=== PATIENT | female | born 1985 | race Asian ===

== ENCOUNTER → 2024-04-30 11:36 | Outpatient (CLI) | payer OTHER, SELFPAY ==
--- NOTE | 2024-04-30 11:39 | DI.RAD.S_ITS ---
PROCEDURE: XR WRIST RT MIN 3V INDICATIONS: Wrist strain TECHNIQUE: 4 views of the wrist were acquired. COMPARISON: None. FINDINGS: Bones: No fractures or dislocations. No suspicious bony lesions. Soft tissues: No suspicious soft tissue calcifications. IMPRESSION: No acute bony abnormality. Dictated by: Marcel Rogers M.D. on 04/30/2024 at 17:06 Approved by: Marcel Rogers M.D. on 04/30/2024 at 17:07
== END ==
PROVIDERS: Referring Provider Nurse Practitioner Family; Visit Provider Nurse Practitioner Family
DX: S66.911A Strain of unspecified muscle, fascia and tendon at wrist and hand level, right hand, initial encounter (principal); X58.XXXA Exposure to other specified factors, initial encounter
CPT/HCPCS: 73110

== ENCOUNTER → 2024-07-20 11:48 | Outpatient (CLI) | payer OTHER, SELFPAY ==
--- NOTE | 2024-07-20 11:49 | DI.US.S_ITS ---
PROCEDURE: US THYROID INDICATIONS: NONTOXIC SINGLE THYROID NODULE TECHNIQUE: Real-time scanning was performed of the thyroid gland, with image documentation. COMPARISON: None. FINDINGS: Thyroid: Right lobe measures 4.2 x 1.3 x 1.3 cm. Left lobe measures 4.7 x 2.1 x 1.6 cm. Isthmus is 0.3 cm thick. Echotexture is heterogeneous on the left. Nodule number: 1 Location: Left inferior Size: 2.9 cm. Composition: Solid Echogenicity: Predominantly hypoechoic Shape: wider than tall. Margins: Smooth Echogenic foci: None Total points: 4 ACR TI-RADS category: Moderately suspicious IMPRESSION: Moderately suspicious 2.9 cm left thyroid nodule. Recommend FNA. ACR TI-RADS definitions and recommendations: TI-RADS 1 (benign): 0 points. FNA not needed. TI-RADS 2 (not suspicious): 2 points. FNA not needed. TI-RADS 3 (mildly suspicious): 3 points. * FNA if 2.5 cm or larger, follow up if 1.5 cm or larger (at 1, 3, and 5 years). TI-RADS 4 (moderately suspicious): 4-6 points. * FNA if 1.5 cm or larger, follow up if 1 cm or larger (at 1, 2, 3, and 5 years). TI-RADS 5 (highly suspicious): 7 points or more. * FNA if 1 cm or larger, follow up if 0.5 cm or larger (every year for 5 years). Dictated by: Marquez SHELBY Interpreted: Tamara Pugh MD on 07/21/2024 at 18:45 Transcribed by: STELLA on 07/21/2024 at 18:46 Approved by: Tamara Pugh M.D. on 07/22/2024 at 16:46
== END ==
PROVIDERS: Family Provider Nurse Practitioner Family; PCP Nurse Practitioner Family; Referring Provider Family Medicine; Visit Provider Family Medicine
DX: E04.1 Nontoxic single thyroid nodule (principal)
CPT/HCPCS: 76536

== ENCOUNTER 2024-09-02 10:45 | Outpatient (RCR) | payer OTHER, SELFPAY ==
--- NOTE | 2024-06-17 12:29 | OT.OPPOC ---
Physical, Occupational & Speech Therapy At [facility] Celine Valiente [id number] 1985 Visit Care Team Role Provider Type DEL Rogers Attending Provider Non-Staff Family Provider Primary Care Provider Referring Provider Address: [address] [place] [address], [id number] Occupational Therapy Plan of Care OT Outpatient Adult Evaluation Start: 06/17/24 09:33 Freq: Status: Active Protocol: Document 06/17/24 09:34 RED (Rec: 06/17/24 11:12 RED [id number]) General Information - Adult Visit Information Visit Number 12/13 Plan of Care Dates 06/17/24 - 08/26/24 Insurance Information [employer], 12 visits Session Time Visit Start Date 06/17/24 Visit Start Time 09:35 Visit Stop Time 10:25 Setting Treatment Setting Outpatient Care Visit Type Note Type Initial Evaluation Referral Referring Physician Juana Fajardo Reason for Referral B wrist pain Identification Identification Confirmed Yes Patient Questionnaires Quick Dash- Upper Extremity Quick Dash UE Score 61.4 Quick Dash UE Impairment 60 to 79% Impaired (Score 60- 79) Quick Dash- Work and Sports Modules Quick Dash W&S Score 100 Quick Dash Work and Sport Impairment 100% Impaired (Score 100) Goals Treatment Treatment kinesio tape applied to B radial thumb/wrists Short Term Goals Short Term Goals 1.Pt will be I with ice massage and gentle AROM initial HEP 2.Pt will increase B thumb AROM to WFL for all movements and planes of movement to promote return to BADLs. 3.Pt will report improved perceived function with a rating of 50 or better on the QuickDash 4.Pt will complete in hand manipulation task, B?ly, 8 of 10 trials without dropping an item. Prison Goals Candle Making Supervisor Goals 1.Pt will be I with strengthening HEP. 2.Pt will increase B pain free middle school technology teacher strength assessment by > 10# from eval measurement 3.Pt will report improved perceived function with a rating of 25 or better on the QuickDash 4.Pt will report/demonstrate, being able to put her hair up I?ly and without increased pain. 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 She first noticed pinching pain in April on her R side, she began wearing a wrist splint on her own off and on. Eventually, her work moved her out of the infant room. 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 Eventually her L thumb/wrist became involved as well. She reports quitting work on June 04. She was issued B thumb spica splints and has been wearing them daily during activities for approximately 3 weeks. She takes Ibuprofen 400mg as needed Pt reports pain at radial aspect of B wrists with L side feeling more ?pinchy?, she rates overall at 3/10. She says this has improved, and that previously she could not tolerate palpation at the radial aspect of her wrists. Pt denies any sensory involvement. Pt reports dropping items such as her phone, toys, and a glass cup. Phmx: Pt was diagnosed with pneumonia on May 29. She says she is still building up her endurance and activity tolerance. PLOF: Pt reports that prior to her injuries, she was I with all her BADL/IADL, working, taking care of her 3 dogs, and leisure activities (gardening ). Currently, she has to have assistance with cooking, deep cleaning the house, gardening , walking the dogs, putting her hair up, and min A for UB dressing when a back zipper is involved. She leaves her shampoo containers open as she is unable to open them. She complains of difficulty cleaning her back, even with her extended back brush. She has great difficulty with turning door knobs. Pt is R hand dominant. ROM: CMC extension: R 30A/45P, L 35A/50P; CMC abduction: R 35A/ 40P, L 35A/40P; MCP flexion: R 48A, L 68A; IP flexion: R 54A , L 30A MMT: B wrists 5/5 Environmental Remediation Engineer: avg L 21.7#, R 36.7# Pinch: lateral L 7#, R 9#; pincer L 3#, R 4#; 3 jaw L 4#, R 6# Pt is + for [place] test B ?ly and is tender on palpation of radial wrist B?ly. She has noted edema over R thenar eminence and all digits of R hand. Pt demonstrates guarding of B hands with R>L throughout evaluation. Pt?s presents with significant deficits in BADL/IADLs, work and leisure, recently having to quit her job due to continued pain in B thumb/ wrists. Pt presents with decreased ROM, muscle weakness , and edema impacting functional use of B hands. Skilled OT services are appropriate to address pt deficits and promote return to PLOF. Home Exercise Program issued, OT to continue to review Reviewed with Patient Home Exercise Program Patient Understanding Excellent Plan Length of treatment (weeks) 10 Plan of Care Start Date 06/17/24 Plan of Care End Date 08/26/24 Comment 1-2x/wk Treatment Duration 45 Minutes Therapeutic Contents Active Range of Motion,Client Education,Functional Activities,Home Exercise Program,Joint Protection, Manual Therapy,Education, Neuromuscular Re-Education, Self-Care,Splinting,Stretching /Flexibility Activities, Therapeutic Activities, Therapeutic Exercises Modalities As Needed Types of Modalities Contrast Bath,Cyrotherapy, Iontophoresis Patient Instruction Home Exercise Program,Plan of Care,Questions/Concerns Patient Recommendations Continue with Current Program Functional Wrist/Hand Scan Hand Side Sensory Assessment Sensory Profile2 Electronically Signed by: Zoe Owens OT 06/17/24 6100 If you are in agreement with this Plan of Care, please return a signed and dated copy. I have reviewed this Plan of Care and certify that the skilled therapy services above are required to meet the patient?s needs. Physician Signature Date Printed Name and Credentials Clinical Instructor Signature Printed Name and Credentials
--- NOTE | 2024-06-24 10:51 | OT.OP.TRT ---
Visit Care Team Role Provider Type DEL Rogers Attending Provider Non-Staff Family Provider Primary Care Provider Referring Provider Specialty: Nursing Address: [address] [place] [address], [id number] Email: Occupational Therapy Treatment Note OT Outpatient Treatment Note - Adult Start: 06/17/24 09:33 Freq: Status: Active Protocol: Document 06/24/24 09:11 [email or web address] (Rec: 06/24/24 09:20 CHRISLOISMARCIE [id number]) OT Outpatient Adult Treatment Note Session Time Visit Start Date 06/24/24 Visit Start Time 09:42 Visit Stop Time 10:27 Visit Information Visit Number 01/13 Plan of Care Dates 06/17/24 - 08/26/24 Insurance Information [facility], 12 visits Setting Treatment Setting Outpatient Care Visit Type Note Type Treatment Note - Subjective Identification Type Name Identification Reconciled With Medical Record Observations My pain is mostly with movement, so I keep my braces on during the day. Pt reports increased pain on waking. OT suggests also wearing splints day. I feel like my hands are opening better Pt reports pain at start of tx at 3/10 and at worst at 6/10. She reports feeling relief from kinesio tape. - Objective Short Term Goals 1.Pt will be I with ice massage and gentle AROM initial HEP. MET 06/24 2.Pt will increase B thumb AROM to WFL for all movements and planes of movement to promote return to BADLs. 3.Pt will report improved perceived function with a rating of 50 or better on the QuickDash 4.Pt will complete in hand manipulation task, B?ly, 8 of 10 trials without dropping an item. Process Plant Operator Goals 1.Pt will be I with strengthening HEP. 2.Pt will increase B pain free regulatory attorney strength assessment by > 10# from eval measurement 3.Pt will report improved perceived function with a rating of 25 or better on the QuickDash 4.Pt will report/demonstrate, being able to put her hair up I?ly and without increased pain. - Treatment 2 Descriptor kinesio tape applied to B thumbs. I strip placed at thumb IP and extended toward lateral aspect of elbow. Second strip placed perpendicular to the first at most painful spot with 75% stretch. 1 Descriptor PROM B thumb CMC extension, abduction, MCP flexion, IP flexion within pain tolerance Exercises 2 Descriptor AROM B thumb retroposition x20 1 Descriptor AAROM B thumb extension (on lap) x40 AAROM B ulnar deviation (on lap) x20 Manual Therapy Manual Therapy Pt tolerated STM to B forearms focusing on APL and EPB. - Assessment Patient Response to Treatment Excellent Rehabilitation Potential Excellent Impairments Identified ADLs,Body Mechanics, Coordination/Dexterity, Flexibility,Functional Activities,Pain,Weakness, Posture,Range of Motion, Meaningful Activities, Stiffness,Swelling,Soft Tissue Mobility Progress Towards Goals Good Progress Assessment of Overall Progress Improving Assessment of Improvement Pt has met STG #1. Pt continues to demonstrate guarding especially on the R side. Pt was unable to tolerate active thumb extension or isometrics for the same movement. Pt was able to perform to WF active assistive on lap. OT recommends that pt wears her splints at night as she is having increased pain when she wakes. Pt?s palm was more open today, especially on the R. Pt makes progress with established POC. Cont per POC. Home Exercise Program Pt demonstrated I with her established HEP. OT will grade exercises up when appropriate . Reviewed with Patient/Caregiver Goals,Home Exercise Program - Plan Therapy Recommendations Continue with Current Program Amount of Therapy Recommended 2-3 Months Comment 1-2x/wk Length of Session 45 Minutes Therapeutic Contents Active Range of Motion,Client Education,Functional Activities,Home Exercise Program,Joint Protection, Manual Therapy,Education, Neuromuscular Re-Education, Self-Care,Splinting,Stretching /Flexibility Activities, Therapeutic Activities, Therapeutic Exercises, Modalities Modalities As Needed Types of Modalities Contrast Bath,Cyrotherapy, Iontophoresis
--- NOTE | 2024-07-01 08:59 | OT.OP.TRT ---
Visit Care Team Role Provider Type DEL Rogers Attending Provider Non-Staff Family Provider Primary Care Provider Referring Provider Specialty: Nursing Address: [address] [place] [address], [phone] Email: Occupational Therapy Treatment Note OT Outpatient Treatment Note - Adult Start: 06/17/24 09:33 Freq: Status: Active Protocol: Document 07/01/24 08:15 CHRISLOISMARCIE (Rec: 07/01/24 07:38 CHRISLOISMARCIE [id number]) OT Outpatient Adult Treatment Note Session Time Visit Start Date 07/01/24 Visit Start Time 08:15 Visit Stop Time 08:56 Visit Information Visit Number 02/10 Plan of Care Dates 06/17/24 - 08/26/24 Insurance Information [facility], 12 visits Setting Treatment Setting Outpatient Care Visit Type Note Type Treatment Note - Subjective Identification Type Name Identification Reconciled With Medical Record Observations Pt reports she is not having any pain at rest just with movement. I vacuumed yesterday for the first time she reports vacuuming the whole house but had no pain with it. I am able to move it further too - Objective Short Term Goals 1.Pt will be I with ice massage and gentle AROM initial HEP. MET 06/24 2.Pt will increase B thumb AROM to WFL for all movements and planes of movement to promote return to BADLs. 3.Pt will report improved perceived function with a rating of 50 or better on the QuickDash 4.Pt will complete in hand manipulation task, B?ly, 8 of 10 trials without dropping an item. Prison Goals 1.Pt will be I with strengthening HEP. 2.Pt will increase B pain free material requirements worker strength assessment by > 10# from eval measurement 3.Pt will report improved perceived function with a rating of 25 or better on the QuickDash 4.Pt will report/demonstrate, being able to put her hair up I?ly and without increased pain. - Treatment 2 Descriptor kinesio tape applied to B thumbs. I strip placed at thumb IP and extended toward lateral aspect of elbow. Second strip placed perpendicular to the first at most painful spot with 75% stretch. 1 Descriptor PROM B thumb CMC extension, abduction, MCP flexion, IP flexion within pain tolerance Exercises 3 Descriptor isometric: R thumb CMC extension x10 (L side painful, will add when not painful) B thumb CMC abduction x10 B thumb CMC flexion x10 B ulnar deviation x10 B radial deviation x10 2 Descriptor AROM B thumb retroposition x20 1 Descriptor AAROM B thumb extension (on lap) x20 AAROM B ulnar deviation (on lap) x20 Manual Therapy Manual Therapy Pt tolerated STM to B forearms focusing on APL and EPB active release technique. PROM B thumbs CMC, MCP, and IP as tolerated all planes of movement - Assessment Patient Response to Treatment Excellent Rehabilitation Potential Excellent Impairments Identified ADLs,Body Mechanics, Coordination/Dexterity, Flexibility,Functional Activities,Pain,Weakness, Posture,Range of Motion, Meaningful Activities, Stiffness,Swelling,Soft Tissue Mobility Progress Towards Goals Good Progress Assessment of Overall Progress Improving Assessment of Improvement Pt reports improved functional pain free use of R dominant hand and demonstrates decreased guarding with B hands during today treatment. Pt able to tolerate addition of isometrics today, unable to tolerate L CMC extension, but otherwise tolerated gentle isometrics. Pt making progress toward STG #2. Pt continues to be appropriate for skilled OT services and makes progress with established POC. Cont per POC. Reviewed with Patient/Caregiver Goals,Home Exercise Program - Plan Therapy Recommendations Continue with Current Program Amount of Therapy Recommended 2-3 Months Comment 1-2x/wk Length of Session 45 Minutes Therapeutic Contents Active Range of Motion,Client Education,Functional Activities,Home Exercise Program,Joint Protection, Manual Therapy,Education, Neuromuscular Re-Education, Self-Care,Splinting,Stretching /Flexibility Activities, Therapeutic Activities, Therapeutic Exercises, Modalities Modalities As Needed Types of Modalities Contrast Bath,Cyrotherapy, Iontophoresis
--- NOTE | 2024-07-08 12:09 | OT.OP.TRT ---
Visit Care Team Role Provider Type DEL Rogers Attending Provider Non-Staff Family Provider Primary Care Provider Referring Provider Specialty: Nursing Address: [address] [place] [address], [id number] Email: Occupational Therapy Treatment Note OT Outpatient Treatment Note - Adult Start: 06/17/24 09:33 Freq: Status: Active Protocol: Document 07/08/24 08:34 RED (Rec: 07/08/24 08:38 RED [id number]) OT Outpatient Adult Treatment Note Session Time Visit Start Date 07/08/24 Visit Start Time 09:45 Visit Stop Time 10:30 Visit Information Visit Number 03/13 Plan of Care Dates 06/17/24 - 08/26/24 Insurance Information [facility], 12 visits Setting Treatment Setting Outpatient Care Visit Type Note Type Treatment Note - Subjective Identification Type Name Identification Reconciled With Medical Record Observations I swatted a pain and it was the worse pain ever! It felt like a shock! Pt says she can tell shes getting a little more movement I can do a little thumbs up. Pt has no pain at rest. Pt reports pain at worse during tx at 5/10 B and 2/10 following tx. - Objective Short Term Goals 1.Pt will be I with ice massage and gentle AROM initial HEP. MET 06/24 2.Pt will increase B thumb AROM to WFL for all movements and planes of movement to promote return to BADLs. 3.Pt will report improved perceived function with a rating of 50 or better on the QuickDash 4.Pt will complete in hand manipulation task, B?ly, 8 of 10 trials without dropping an item. Senior Living Goals 1.Pt will be I with strengthening HEP. 2.Pt will increase B pain free ground products director strength assessment by > 10# from eval measurement 3.Pt will report improved perceived function with a rating of 25 or better on the QuickDash 4.Pt will report/demonstrate, being able to put her hair up I?ly and without increased pain. - Treatment 3 Descriptor STM: thenar eminence and web space B'ly. R>L with trigger points and 2 Descriptor kinesio tape applied to B thumbs. I strip placed at thumb IP and extended toward lateral aspect of elbow. Second strip placed perpendicular to the first at most painful spot with 75% stretch. 1 Descriptor PROM B thumb CMC extension, abduction, MCP flexion, IP flexion within pain tolerance Exercises 3 Descriptor isometric: R thumb CMC extension x10 (L side painful, will add when not painful) B thumb CMC abduction x10 B thumb CMC flexion x10 B ulnar deviation x10 B radial deviation x10 2 Descriptor AROM B thumb retroposition x20 1 Descriptor AAROM B thumb extension (on lap) x20 AAROM B ulnar deviation (on lap) x20 Manual Therapy Manual Therapy Pt tolerated STM to B forearms focusing on APL and EPB active release technique. PROM B thumbs CMC, MCP, and IP as tolerated all planes of movement - Assessment Patient Response to Treatment Excellent Rehabilitation Potential Excellent Impairments Identified ADLs,Body Mechanics, Coordination/Dexterity, Flexibility,Functional Activities,Pain,Weakness, Posture,Range of Motion, Meaningful Activities, Stiffness,Swelling,Soft Tissue Mobility Progress Towards Goals Good Progress Assessment of Overall Progress Improving Assessment of Improvement Pt continues to be very guarded with B hands with R>L. Pt tolerates STM well and stretching to B thumbs. Pt had pain when initiating AAROM L thumb extension and R ulnar deviation, OT passively initiated both movements for approximately 5 reps, pt was then able to take over movement with pain free ROM. Pt tolerated all isometrics today [place], previously unable to tolerate all on her L side. Pt continues to wear her splints with all activity. Pt continues to benefit from skilled OT services per established POC. Cont per POC. Reviewed with Patient/Caregiver Goals,Home Exercise Program - Plan Therapy Recommendations Continue with Current Program Amount of Therapy Recommended 2-3 Months Comment 1-2x/wk Length of Session 45 Minutes Therapeutic Contents Active Range of Motion,Client Education,Functional Activities,Home Exercise Program,Joint Protection, Manual Therapy,Education, Neuromuscular Re-Education, Self-Care,Splinting,Stretching /Flexibility Activities, Therapeutic Activities, Therapeutic Exercises, Modalities Modalities As Needed Types of Modalities Contrast Bath,Cyrotherapy, Iontophoresis
--- NOTE | 2024-07-13 12:18 | OT.OP.TRT ---
Visit Care Team Role Provider Type DEL Rogers Attending Provider Non-Staff Family Provider Primary Care Provider Referring Provider Specialty: Nursing Address: [address] [place] [address], [phone] Email: Occupational Therapy Treatment Note OT Outpatient Treatment Note - Adult Start: 06/17/24 09:33 Freq: Status: Active Protocol: Document 07/13/24 09:45 RED (Rec: 07/13/24 09:17 RED [id number]) OT Outpatient Adult Treatment Note Session Time Visit Start Date 07/13/24 Visit Start Time 09:45 Visit Stop Time 10:30 Visit Information Visit Number 04/12 Plan of Care Dates 06/17/24 - 08/26/24 Insurance Information [facility], 12 visits Setting Treatment Setting Outpatient Care Visit Type Note Type Treatment Note - Subjective Identification Type Name Identification Reconciled With Medical Record Observations I can tell my range of motion is getting better. Pt reports she was having pain off and on since last treatment. She reports she lost her dog last Saturday maybe my stress level is up to . She reports she is taking her splints off more since she has been feeling better. Pt went blueberry picking yesterday. Prior to picking she wasn't having any pain, so she removed her splints. She said she had same pain during but pain increased more following task. At start of tx pt reports pain at 2/10 with L>R and 3/10 at end with R>L - Objective Short Term Goals 1.Pt will be I with ice massage and gentle AROM initial HEP. MET 06/24 2.Pt will increase B thumb AROM to WFL for all movements and planes of movement to promote return to BADLs. 3.Pt will report improved perceived function with a rating of 50 or better on the QuickDash 4.Pt will complete in hand manipulation task, B?ly, 8 of 10 trials without dropping an item. Detention Goals 1.Pt will be I with strengthening HEP. 2.Pt will increase B pain free bun panner strength assessment by > 10# from eval measurement 3.Pt will report improved perceived function with a rating of 25 or better on the QuickDash 4.Pt will report/demonstrate, being able to put her hair up I?ly and without increased pain. - Treatment 3 Descriptor STM: thenar eminence and web space B'ly. R>L with trigger point and tightness 2 Descriptor kinesio tape applied to B thumbs. I strip placed at thumb IP and extended toward lateral aspect of elbow. Second strip placed perpendicular to the first at most painful spot with 75% stretch. 1 Descriptor PROM B thumb CMC extension, abduction, MCP flexion, IP flexion within pain tolerance Exercises [address] and hold thumb abduction x5 reps 3 Descriptor isometric: R thumb CMC extension x10 (pt able to tolerate on L today) B thumb CMC abduction x10 B thumb CMC flexion x10 B ulnar deviation x10 B radial deviation x10 2 Descriptor AROM B thumb retroposition x20 1 Descriptor AAROM B thumb extension (on lap) x20 AAROM B ulnar deviation (on lap) x20 Manual Therapy Manual Therapy PROM B thumbs CMC, MCP, and IP as tolerated all planes of movement; transverse massage B 'ly - Assessment Patient Response to Treatment Good Rehabilitation Potential Excellent Impairments Identified ADLs,Body Mechanics, Coordination/Dexterity, Flexibility,Functional Activities,Pain,Weakness, Posture,Range of Motion, Meaningful Activities, Stiffness,Swelling,Soft Tissue Mobility Progress Towards Goals Good Progress Assessment of Overall Progress Improving Assessment of Improvement Pt continues to be very guarded with B hands with R>L. Pt tolerates STM well and stretching to B thumbs. Today , pt demonstrated improved tolerance of AAROM as evidenced by being able to tolerate AAROM without OT initiating movement. Pt has limited active thumb abduction . Pt was able to tolerate place hold for submaximal ROM to initiate improved function and strength. OT encouraged pt to wear her splints more regularly with all activities as she is having increased pain with less wearing this past week. Pt may benefit from cortisone injections. Pt continues to benefit from skilled OT services per established POC. Cont per POC. Reviewed with Patient/Caregiver Goals,Home Exercise Program - Plan Therapy Recommendations Continue with Current Program Amount of Therapy Recommended 2-3 Months Comment 1-2x/wk Length of Session 45 Minutes Therapeutic Contents Active Range of Motion,Client Education,Functional Activities,Home Exercise Program,Joint Protection, Manual Therapy,Education, Neuromuscular Re-Education, Self-Care,Splinting,Stretching /Flexibility Activities, Therapeutic Activities, Therapeutic Exercises, Modalities Modalities As Needed Types of Modalities Contrast Bath,Cyrotherapy, Iontophoresis
--- NOTE | 2024-07-20 12:18 | OT.OP.TRT ---
Visit Care Team Role Provider Type DEL Rogers Attending Provider Non-Staff Family Provider Primary Care Provider Referring Provider Specialty: Nursing Address: [address] [place] [address], [id number] Email: Occupational Therapy Treatment Note OT Outpatient Treatment Note - Adult Start: 06/17/24 09:33 Freq: Status: Active Protocol: Document 07/20/24 09:47 RED (Rec: 07/20/24 09:17 RED [id number]) OT Outpatient Adult Treatment Note Session Time Visit Start Date 07/20/24 Visit Start Time 09:47 Visit Stop Time 10:30 Visit Information Visit Number 05/13 Plan of Care Dates 06/17/24 - 08/26/24 Insurance Information [facility], 12 visits Setting Treatment Setting Outpatient Care Visit Type Note Type Treatment Note - Subjective Identification Type Name Identification Reconciled With Medical Record Observations Pt starting taking a molecular hydrogen water bottle and started new vitamin (complete vitamins, phytoenergizer) . I feel so good today, I drove for the first time! I woke up without pain and can do a thumbs up! - Objective Short Term Goals 1.Pt will be I with ice massage and gentle AROM initial HEP. MET 06/24 2.Pt will increase B thumb AROM to WFL for all movements and planes of movement to promote return to BADLs. 3.Pt will report improved perceived function with a rating of 50 or better on the QuickDash 4.Pt will complete in hand manipulation task, B?ly, 8 of 10 trials without dropping an item. [employer] Goals 1.Pt will be I with strengthening HEP. 2.Pt will increase B pain free imaging account manager strength assessment by > 10# from eval measurement 3.Pt will report improved perceived function with a rating of 25 or better on the QuickDash 4.Pt will report/demonstrate, being able to put her hair up I?ly and without increased pain. - Treatment 3 Descriptor STM: thenar eminence and web space B'ly. R>L with trigger point and tightness 2 Descriptor kinesio tape applied to B thumbs. I strip placed at thumb IP and extended toward lateral aspect of elbow. Second strip placed perpendicular to the first at most painful spot with 75% stretch. 1 Descriptor PROM B thumb CMC extension, abduction, MCP flexion, IP flexion within pain tolerance Exercises 5 Descriptor rubberband: B thumb abduction 10x2 thumb extension 10x2 thumb flexion 10x2 [address] and hold thumb abduction x5 reps 3 Descriptor isometric: R thumb CMC extension x10 B thumb CMC abduction x10 B thumb CMC flexion x10 B ulnar deviation x10 B radial deviation x10 2 Descriptor AROM B thumb retroposition x20 1 Descriptor AAROM B thumb extension (on lap) x20 AAROM B ulnar deviation (on lap) x20 Manual Therapy Manual Therapy PROM B thumbs CMC, MCP, and IP as tolerated all planes of movement; transverse massage B 'ly - Assessment Patient Response to Treatment Good Rehabilitation Potential Excellent Impairments Identified ADLs,Body Mechanics, Coordination/Dexterity, Flexibility,Functional Activities,Pain,Weakness, Posture,Range of Motion, Meaningful Activities, Stiffness,Swelling,Soft Tissue Mobility Progress Towards Goals Good Progress Assessment of Overall Progress Improving Assessment of Improvement Pt was significantly less guarded with B hands today. Pt demonstrates improved AROM, especially with R, but continues to need STM and stretching to obtain full ROM. Pt tolerated addition of rubber band strengthening tasks today. Pt makes progress toward STG #2. Pt continues to benefit from skilled OT services per established POC. Cont per POC. Reviewed with Patient/Caregiver Goals,Home Exercise Program - Plan Therapy Recommendations Continue with Current Program Amount of Therapy Recommended 2-3 Months Comment 1-2x/wk Length of Session 45 Minutes Therapeutic Contents Active Range of Motion,Client Education,Functional Activities,Home Exercise Program,Joint Protection, Manual Therapy,Education, Neuromuscular Re-Education, Self-Care,Splinting,Stretching /Flexibility Activities, Therapeutic Activities, Therapeutic Exercises, Modalities Modalities As Needed Types of Modalities Contrast Bath,Cyrotherapy, Iontophoresis
--- NOTE | 2024-07-27 12:28 | OT.OP.TRT ---
Visit Care Team Role Provider Type DEL Rogers Attending Provider Non-Staff Family Provider Primary Care Provider Referring Provider Specialty: Nursing Address: [address] [place] [address], [id number] Email: Occupational Therapy Treatment Note OT Outpatient Treatment Note - Adult Start: 06/17/24 09:33 Freq: Status: Active Protocol: Document 07/27/24 09:50 RED (Rec: 07/27/24 09:45 RED [id number]) OT Outpatient Adult Treatment Note Session Time Visit Start Date 07/27/24 Visit Start Time 09:50 Visit Stop Time 10:30 Visit Information Visit Number 06/12 Plan of Care Dates 06/17/24 - 08/26/24 Insurance Information [facility], 12 visits Setting Treatment Setting Outpatient Care Visit Type Note Type Treatment Note - Subjective Identification Type Name Identification Reconciled With Medical Record Observations Pt reports she saw her PCM on Saturday who reported he did not recommend a cortisone injection. Instead she was given an order for Celebrex. Pt has not started taking the medication because she is feeling much better with the natural changes she has made. Pt reports she is only having pain on her L side with movement. She is no longer having pain on her R side. Pt is wearing her splint on the left side only and with activity only. Pt reports pain on left side at 3/10 during tx. No pain on R. - Objective Objective Measurements QuickDash 20.5 (eval 61.4) Short Term Goals 1.Pt will be I with ice massage and gentle AROM initial HEP. MET 06/24 2.Pt will increase B thumb AROM to WFL for all movements and planes of movement to promote return to BADLs. 3.Pt will report improved perceived function with a rating of 50 or better on the QuickDash MET 07/27/24 4.Pt will complete in hand manipulation task, B?ly, 8 of 10 trials without dropping an item. Call Box Wirer Goals 1.Pt will be I with strengthening HEP. 2.Pt will increase B pain free cooker loader strength assessment by > 10# from eval measurement 3.Pt will report improved perceived function with a rating of 25 or better on the QuickDash MET 07/27/24 4.Pt will report/demonstrate, being able to put her hair up I?ly and without increased pain. - Treatment 3 Descriptor STM: thenar eminence and web space B'ly. R>L with trigger point and tightness 1 Descriptor PROM B thumb CMC extension, abduction, MCP flexion, IP flexion within pain tolerance Exercises 6 Descriptor tputty red: R only x10 each thumb extension, thumb abduction 3 jaw pinch putty pull 3 Descriptor isometric: R thumb CMC extension x10 B thumb CMC abduction x10 B thumb CMC flexion x10 B ulnar deviation x10 B radial deviation x10 1 Descriptor AAROM L thumb extension (on lap) x20; AROM R thumb extension x20 AAROM L ulnar deviation (on lap) x20; AROM R thumb extension x20 - Assessment Patient Response to Treatment Good Rehabilitation Potential Excellent Impairments Identified ADLs,Body Mechanics, Coordination/Dexterity, Flexibility,Functional Activities,Pain,Weakness, Posture,Range of Motion, Meaningful Activities, Stiffness,Swelling,Soft Tissue Mobility Progress Towards Goals Good Progress Assessment of Overall Progress Improving Assessment of Improvement Pt demonstrates decreased guarding with all tasks for B hands. Pt reports no pain during tx for R hand and max of 3/10 for L hand during tx. Pt has met STG #3 and LTG3# with respect to her QuickDash. Pt was issued a tputty exercise program to be performed with R hand. L hand is unable to tolerate at this time. Pt demonstrates tolerance of against gravity ROM for R but no L today. Pt progressing well per established POC. Cont per POC. Reviewed with Patient/Caregiver Goals,Home Exercise Program Patient/Caregiver Understanding Excellent - Plan Therapy Recommendations Continue with Current Program Amount of Therapy Recommended 2-3 Months Comment 1-2x/wk Length of Session 45 Minutes Therapeutic Contents Active Range of Motion,Client Education,Functional Activities,Home Exercise Program,Joint Protection, Manual Therapy,Education, Neuromuscular Re-Education, Self-Care,Splinting,Stretching /Flexibility Activities, Therapeutic Activities, Therapeutic Exercises, Modalities Modalities As Needed Types of Modalities Contrast Bath,Cyrotherapy, Iontophoresis
--- NOTE | 2024-09-02 12:57 | OT.OP.TRT ---
Visit Care Team Role Provider Type DEL Rogers Attending Provider Non-Staff Family Provider Primary Care Provider Referring Provider Specialty: Nursing Address: [address] [place] [address], [id number] Email: Occupational Therapy Treatment Note OT Outpatient Treatment Note - Adult Start: 06/17/24 09:33 Freq: Status: Active Protocol: Document 09/02/24 10:52 CHRISPAZ (Rec: 09/02/24 11:31 RED [id number]) OT Outpatient Adult Treatment Note Session Time Visit Start Date 09/02/24 Visit Start Time 10:50 Visit Stop Time 11:30 Visit Information Visit Number 07/13 Plan of Care Dates 06/17/24 - 08/26/24 Insurance Information [facility], 12 visits Setting Treatment Setting Outpatient Care Visit Type Note Type Treatment Note - Subjective Identification Type Name Identification Reconciled With Medical Record Observations The right is doing great. I had no problems. It is a little pinchy still on the L. Pt has no pain at rest or with AROM. Patient/Caregiver Compliance with Home Excellent Exercise Program - Objective Objective Measurements CMC Ext: R 40A/45P, L 45A/50P; CMC abd R 45A/50P, L 40A/45P; MCP Flex R 65A, L 65A; IR Flex R 54A, L 55A Rotary Drum Dyer R: 40#, 40#, 45# (avg 41. 7#), L: 34#, 40#, 40# (avg 38# ) Lateral pinch R 12#, L 11#; 3 jaw R 10#, L 7#; pincer R 9#, L 5# QuickDash 9.1 Short Term Goals 1.Pt will be I with ice massage and gentle AROM initial HEP. MET 06/24 2.Pt will increase B thumb AROM to WFL for all movements and planes of movement to promote return to BADLs. MET 3.Pt will report improved perceived function with a rating of 50 or better on the QuickDash MET 07/27/24 4.Pt will complete in hand manipulation task, B?ly, 8 of 10 trials without dropping an item. MET Mcc Goals 1.Pt will be I with strengthening HEP. MET 2.Pt will increase B pain free county supervisor strength assessment by > 10# from eval measurement. MET L, progress R 3.Pt will report improved perceived function with a rating of 25 or better on the QuickDash MET 07/27/24 4.Pt will report/demonstrate, being able to put her hair up I?ly and without increased pain. MET 09/02/24 - Exercises 7 Descriptor wrist flexion, extension, radial/ulnar deviation 1# x 20 each - Assessment Patient Response to Treatment Excellent Rehabilitation Potential Excellent Impairments Identified ADLs,Body Mechanics, Coordination/Dexterity, Flexibility,Functional Activities,Pain,Weakness, Posture,Range of Motion, Meaningful Activities, Stiffness,Swelling,Soft Tissue Mobility Progress Towards Goals Good Progress Assessment of Overall Progress Improving Assessment of Improvement Pt participated in necessary assessments to obtain ROM and strength during todays tx. Pt demonstrated I with HEP. OT issued pt new exercises for generalized wrist strength and stability. Pt demonstrated I with these during today's session. Reviewed with Patient/Caregiver Goals,Home Exercise Program Patient/Caregiver Understanding Excellent - Plan Therapy Recommendations Discharge to Home Exercise Program Amount of Therapy Recommended No Further Therapy Length of Session Other Therapeutic Contents Active Range of Motion,Client Education,Functional Activities,Home Exercise Program,Joint Protection, Manual Therapy,Education, Neuromuscular Re-Education, Self-Care,Splinting,Stretching /Flexibility Activities, Therapeutic Activities, Therapeutic Exercises, Modalities Modalities As Needed Types of Modalities Contrast Bath,Cyrotherapy, Iontophoresis
--- NOTE | 2024-09-02 12:58 | OT.OP.DC ---
Visit Care Team Role Provider Type DEL Rogers Attending Provider Non-Staff Family Provider Primary Care Provider Referring Provider Address: [address] [place] [address], [phone] Email: OT Outpatient OT Outpatient Adult Evaluation Start: 06/17/24 09:33 Freq: Status: Active Protocol: Document 06/17/24 09:34 RED (Rec: 06/17/24 11:12 RED [id number]) General Information - Adult Visit Information Visit Number 12/13 Plan of Care Dates 06/17/24 - 08/26/24 Insurance Information [facility], 12 visits Session Time Visit Start Date 06/17/24 Visit Start Time 09:35 Visit Stop Time 10:25 Setting Treatment Setting Outpatient Care Visit Type Note Type Initial Evaluation Referral Referring Physician Juana Fajardo Reason for Referral B wrist pain Identification Identification Confirmed Yes Patient Questionnaires Quick Dash- Upper Extremity Quick Dash UE Score 61.4 Quick Dash UE Impairment 60 to 79% Impaired (Score 60- 79) Quick Dash- Work and Sports Modules Quick Dash W&S Score 100 Quick Dash Work and Sport Impairment 100% Impaired (Score 100) Goals Treatment Treatment kinesio tape applied to B radial thumb/wrists Short Term Goals Short Term Goals 1.Pt will be I with ice massage and gentle AROM initial HEP 2.Pt will increase B thumb AROM to WFL for all movements and planes of movement to promote return to BADLs. 3.Pt will report improved perceived function with a rating of 50 or better on the QuickDash 4.Pt will complete in hand manipulation task, B?ly, 8 of 10 trials without dropping an item. Alf Goals Nurse Extern Goals 1.Pt will be I with strengthening HEP. 2.Pt will increase B pain free golf club weigher strength assessment by > 10# from eval measurement 3.Pt will report improved perceived function with a rating of 25 or better on the QuickDash 4.Pt will report/demonstrate, being able to put her hair up I?ly and without increased pain. 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 She first noticed pinching pain in April on her R side, she began wearing a wrist splint on her own off and on. Eventually, her work moved her out of the infant room. 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 Eventually her L thumb/wrist became involved as well. She reports quitting work on June 04. She was issued B thumb spica splints and has been wearing them daily during activities for approximately 3 weeks. She takes Ibuprofen 400mg as needed Pt reports pain at radial aspect of B wrists with L side feeling more ?pinchy?, she rates overall at 3/10. She says this has improved, and that previously she could not tolerate palpation at the radial aspect of her wrists. Pt denies any sensory involvement. Pt reports dropping items such as her phone, toys, and a glass cup. Phmx: Pt was diagnosed with pneumonia on May 29. She says she is still building up her endurance and activity tolerance. PLOF: Pt reports that prior to her injuries, she was I with all her BADL/IADL, working, taking care of her 3 dogs, and leisure activities (gardening ). Currently, she has to have assistance with cooking, deep cleaning the house, gardening , walking the dogs, putting her hair up, and min A for UB dressing when a back zipper is involved. She leaves her shampoo containers open as she is unable to open them. She complains of difficulty cleaning her back, even with her extended back brush. She has great difficulty with turning door knobs. Pt is R hand dominant. ROM: CMC extension: R 30A/45P, L 35A/50P; CMC abduction: R 35A/ 40P, L 35A/40P; MCP flexion: R 48A, L 68A; IP flexion: R 54A , L 30A MMT: B wrists 5/5 Dermatology Physician Assistant: avg L 21.7#, R 36.7# Pinch: lateral L 7#, R 9#; pincer L 3#, R 4#; 3 jaw L 4#, R 6# Pt is + for [place] test B ?ly and is tender on palpation of radial wrist B?ly. She has noted edema over R thenar eminence and all digits of R hand. Pt demonstrates guarding of B hands with R>L throughout evaluation. Pt?s presents with significant deficits in BADL/IADLs, work and leisure, recently having to quit her job due to continued pain in B thumb/ wrists. Pt presents with decreased ROM, muscle weakness , and edema impacting functional use of B hands. Skilled OT services are appropriate to address pt deficits and promote return to PLOF. Home Exercise Program issued, OT to continue to review Reviewed with Patient Home Exercise Program Patient Understanding Excellent Plan Length of treatment (weeks) 10 Plan of Care Start Date 06/17/24 Plan of Care End Date 08/26/24 Comment 1-2x/wk Treatment Duration 45 Minutes Therapeutic Contents Active Range of Motion,Client Education,Functional Activities,Home Exercise Program,Joint Protection, Manual Therapy,Education, Neuromuscular Re-Education, Self-Care,Splinting,Stretching /Flexibility Activities, Therapeutic Activities, Therapeutic Exercises Modalities As Needed Types of Modalities Contrast Bath,Cyrotherapy, Iontophoresis Patient Instruction Home Exercise Program,Plan of Care,Questions/Concerns Patient Recommendations Continue with Current Program Functional Wrist/Hand Scan Hand Side Sensory Assessment Sensory Profile2 OT Outpatient Treatment Note - Adult Start: 06/17/24 09:33 Freq: Status: Active Protocol: Document 09/02/24 10:52 RED (Rec: 09/02/24 11:31 RED [id number]) OT Outpatient Adult Treatment Note Session Time Visit Start Date 09/02/24 Visit Start Time 10:50 Visit Stop Time 11:30 Visit Information Visit Number 8 Plan of Care Dates 06/17/24 - 08/26/24 Insurance Information [facility], 12 visits Setting Treatment Setting Outpatient Care Visit Type Note Type Discharge Note - Subjective Identification Type Name Identification Reconciled With Medical Record Observations The right is doing great. I had no problems. It is a little pinchy still on the L. Pt has no pain at rest or with AROM. Patient/Caregiver Compliance with Home Excellent Exercise Program - Objective Objective Measurements CMC Ext: R 40A/45P, L 45A/50P; CMC abd R 45A/50P, L 40A/45P; MCP Flex R 65A, L 65A; IR Flex R 54A, L 55A Dermatology Physician Assistant R: 40#, 40#, 45# (avg 41. 7#), L: 34#, 40#, 40# (avg 38# ) Lateral pinch R 12#, L 11#; 3 jaw R 10#, L 7#; pincer R 9#, L 5# QuickDash 9.1 Short Term Goals 1.Pt will be I with ice massage and gentle AROM initial HEP. MET 06/24 2.Pt will increase B thumb AROM to WFL for all movements and planes of movement to promote return to BADLs. MET 3.Pt will report improved perceived function with a rating of 50 or better on the QuickDash MET 07/27/24 4.Pt will complete in hand manipulation task, B?ly, 8 of 10 trials without dropping an item. MET Alf Goals 1.Pt will be I with strengthening HEP. MET 2.Pt will increase B pain free golf club weigher strength assessment by > 10# from eval measurement. MET L, progress R 3.Pt will report improved perceived function with a rating of 25 or better on the QuickDash MET 07/27/24 4.Pt will report/demonstrate, being able to put her hair up I?ly and without increased pain. MET 09/02/24 - Assessment Patient Response to Treatment Excellent Rehabilitation Potential Excellent Impairments Identified ADLs,Body Mechanics, Coordination/Dexterity, Flexibility,Functional Activities,Pain,Weakness, Posture,Range of Motion, Meaningful Activities, Stiffness,Swelling,Soft Tissue Mobility Progress Towards Goals Good Progress Assessment of Overall Progress Improving Assessment of Improvement Pt reports being full satisfied with her progress with therapy and reports that she believes she can maintain her progress with her HEPs. Pt reports occasionally having a pinchy sensation at her L wrist/thumb. She reports that this is infrequent. Pt had no pain complaints during todays visit. Pt demonstrates improvements in ROM, strength, and function as described in the objective section. Pt has made significant progress with respect to established goals and is appropriate to d/c from skilled OT services to [facility] at this time. Reviewed with Patient/Caregiver Goals,Home Exercise Program Patient/Caregiver Understanding Excellent - Plan Therapy Recommendations Discharge to Home Exercise Program Amount of Therapy Recommended No Further Therapy Length of Session Other Therapeutic Contents Active Range of Motion,Client Education,Functional Activities,Home Exercise Program,Joint Protection, Manual Therapy,Education, Neuromuscular Re-Education, Self-Care,Splinting,Stretching /Flexibility Activities, Therapeutic Activities, Therapeutic Exercises, Modalities Modalities As Needed Types of Modalities Contrast Bath,Cyrotherapy, Iontophoresis
== END 2024-09-03 14:00 | disposition home or self-care (01) ==
LOC: OT 10:45
PROVIDERS: Family Provider Nurse Practitioner Family; PCP Nurse Practitioner Family; Referring Provider Nurse Practitioner Family; Visit Provider Nurse Practitioner Family
DX: M77.8 Other enthesopathies, not elsewhere classified (principal)
CPT/HCPCS: 97110; 97140; 97166; 97530